=== PATIENT | male | born 1965 ===

== ENCOUNTER 2020-05-19 06:52 | Day surgery (SDC) | payer OTHER | END 2020-05-19 11:05 | disposition home or self-care (01) | LOC: AMB-ENDOS 06:52 → ADM 13:00 → AMB-ENDOS 13:00 | PROVIDERS: ATTEND Surgery | DX: K60.1 Chronic anal fissure (principal); K64.1 Second degree hemorrhoids; Z20.828 Contact with and (suspected) exposure to other viral communicable diseases ==

== ENCOUNTER 2025-04-05 05:52 | Day surgery (SDC) | payer OTHER ==
[2025-03-29 11:18] LABS: BASO % 0.6 % (0.1-1.2); EOS # 0.09 (0.04-0.54); HEMATOCRIT 39.6 % (40.1-51.0); HEMOGLOBIN 13.1 g/dL (13.7-17.5); LYMPH # 1.53 (1.18-3.74); LYMPH % 17.8 % (19.3-53.1); MEAN CORPUSCULAR HEMOGLOBIN 30.3 pg (25.6-32.2); MONO # 0.42 (0.24-0.82); MONO % 4.9 % (4.7-12.5); NEUT # 6.47 (1.56-6.13); NEUT % 75.5 % (34.0-71.1); PLATELET COUNT 253 K/uL (163-369); RED BLOOD COUNT 4.33 M/uL (4.63-6.08); RED CELL DISTRIBUTION WIDTH 14.3 % (11.6-14.4)
[2025-03-29 11:26] LABS: URINE APPEARANCE Clear; URINE BILIRRUBIN Negative (NEGATIVE); URINE BLOOD Negative; URINE COLOR Yellow; URINE GLUCOSE Negative (NEGATIVE); URINE KETONE 15 (NEGATIVE); URINE LEUKOCYTE Negative; URINE NITRATE Negative; URINE PROTEIN Negative (NEGATIVE); URINE UROBILINOGEN 0.2 E.U./dl
[2025-03-29 11:31] LABS: URINE BACTERIA 34.2 uL (0.0-1933)
[2025-03-29 11:36] LABS: URINE CAST 0.14 uL (0.0-1.40); URINE EPITHELIAL CELLS 0.7 uL (0.0-38.8); URINE RBC 0.4 uL (0.0-20.8)
[2025-03-29 12:18] VITALS: BP 125/82
[2025-03-29 12:18] LABS: BILIRUBIN TOTAL 0.82 mg/dL (0.3-1.2); CALCIUM 9.3 mg/dL (8.5-10.1); CREATININE SERUM 1.01 mg/dL (0.70-1.30); GFR 75.61; GLOBULINA 3.3 G/DL (2.4-3.5); POTASSIUM 5.1 mEq/L (3.5-5.1); TOTAL PROTEIN 7.3 gm/dL (6.4-8.2)
[2025-03-29 12:21] LABS: INR < 0.93; PARTIAL THROMBOPLASTIN TIME 24.8 SECONDS (22.0-34.0); PROTHROMBIN TIME 10.2 SECONDS (9.0-11.5)
[~2025-04-05] VITALS: Ht 175.3 cm; Wt 68.0 kg
[2025-04-05] MEDS ORDERED: CEFTRIAXONE SODIUM 2,000 MG VIAL ONE (08:08)
[2025-04-05] MEDS ORDERED: HEMOSTATIC MATRIX 1 KIT KIT TOP ONE (09:54)
[2025-04-05] MEDS ORDERED: LIDOCAINE HCL 1%/EPINEPHRINE 20ML VIAL IJ ONE (09:54)
[2025-04-05] MEDS ORDERED: BUPIVACAINE HCL/MPF 0.5% 30ML VIAL ONE (09:54)
[2025-04-05] MEDS ORDERED: NEURONTIN300 MG PO (10:06)
[2025-04-05] MEDS ORDERED: COLACE100 MG PO (10:06)
[2025-04-05] MEDS ORDERED: PERCOCET 5-3251 EACH PO (10:06)
[2025-04-05] MEDS ORDERED: BUPIVACAINE LIPOSOME/PF 266 MG/20 ML VIAL IJ ONE (10:14)
== END 2025-04-05 15:30 | disposition home or self-care (01) ==
LOC: CIR.AMB 05:52
PROVIDERS: ATTEND Surgery
DX: K60.0 Acute anal fissure (principal); K62.4 Stenosis of anus and rectum; K62.89 Other specified diseases of anus and rectum